=== PATIENT | male | born 1960 | race Caucasian/White ===

== ENCOUNTER 2018-06-18 21:49 | Emergency (ER) | payer SELFPAY ==
[~2018-06-18] VITALS: Ht 162.6 cm; Wt 61.0 kg
[~2018-06-18 21:49] MED LIST: AMLO5TAB4 PO
[2018-06-18] MEDS ORDERED: KETOROLAC 60MG/2ML VIAL IM ONE (23:15)
[2018-06-19 01:02] VITALS: BP 161/93
== END 2018-06-19 02:00 | disposition home or self-care (01) ==
LOC: ER 06-19 01:54
DX: G44.209 Tension-type headache, unspecified, not intractable (principal)
CPT/HCPCS: 96372; 99283; J1885